=== PATIENT | male | born 1960 | race African-American/Black ===

== ENCOUNTER 2018-06-08 15:54 | Emergency (ER) | payer BC ==
[~2018-06-08] VITALS: Ht 170.2 cm; Wt 84.8 kg
[~2018-06-08 15:54] MED LIST: ADULT LOW DOSE81 MG; APAP500; BACTRIM DS TAB1 EACH PO; DENIES ANY MEDS; MECLIZINE 25 MG25 M1 PO; NAPROXEN 500MG500 MG PO; NORFLEX100 MG PO; PHENERGAN 25 MG25 M1 PO; PRILOSEC40 MG PO
[2018-06-08] MEDS ORDERED: NAPROSYN500 MG PO (18:41)
[2018-06-08] MEDS ORDERED: SENNA-DOCUSATE1 EACH PO (18:41)
[2018-06-08] MEDS ORDERED: NORCO 5-325 TA1 EACH PO (18:41)
[2018-06-08] MEDS ORDERED: FLEXERIL PO (18:41)
[2018-06-08 19:02] VITALS: BP 141/69
== END 2018-06-08 19:03 | disposition home or self-care (01) ==
LOC: ER 15:54
DX: S16.1XXA Strain of muscle, fascia and tendon at neck level, initial encounter (principal); F17.210 Nicotine dependence, cigarettes, uncomplicated; Z95.5 Presence of coronary angioplasty implant and graft; V89.2XXA Person injured in unspecified motor-vehicle accident, traffic, initial encounter; Y93.89 Activity, other specified; Y92.89 Other specified places as the place of occurrence of the external cause; Y99.8 Other external cause status